=== PATIENT | male | born 1965 | race Caucasian/White ===

== ENCOUNTER 2018-02-27 15:10 | Emergency (ER) | payer OTHER, MEDICAID | END 2018-02-27 17:05 | disposition home or self-care (01) | LOC: FTE 15:10 | DX: S91.202A Unspecified open wound of left great toe with damage to nail, initial encounter (principal); X58.XXXA Exposure to other specified factors, initial encounter; Y92.9 Unspecified place or not applicable | CPT/HCPCS: 99282 ==

== ENCOUNTER 2018-07-11 06:29 | Emergency (ER) | payer OTHER | END 2018-07-11 07:03 | disposition home or self-care (01) | LOC: FTE 06:29 | DX: J02.9 Acute pharyngitis, unspecified (principal); I10 Essential (primary) hypertension; E11.9 Type 2 diabetes mellitus without complications | CPT/HCPCS: 99282 ==